=== PATIENT | female | born 1980 | race Caucasian/White ===

== ENCOUNTER 2016-10-25 11:02 | Emergency (ER) ==
[2016-10-25 11:12] VITALS: BP 118/77; TEMP 97.6; BMI 21.3
--- NOTE | 2016-10-25 11:32 | ED.PDOC ---
General ED Provider: Dr. ESTHER DUMONT-ER Chief Complaint: Earache Stated Complaint: Patient complains of bilateral ear pain with an enlarged lymph node on the left neck below the ear Time Seen by Physician: 11:29 Information Source: Patient, Family Exam Limitations: No limitations Primary Care Provider: YOVANI SERNA Nursing and Triage Documentation Reviewed and Agree: Yes Past Medical History - Past Medical History Endocrine: Reports: Hypothyroid Cardiovascular: Reports: None Respiratory: Reports: None Hematological: Reports: None Gastrointestinal: Reports: None Genitourinary: Reports: None Neuro/Psych: Reports: None Musculoskeletal: Reports: None Cancer: Reports: None Last Menstrual Period: 10/09/16 Other Pertinent Past Medical History: otitis media - Surgical History General Surgical History: Reports: None - Social History Smoking Status: Current some day smoker Hx Substance Use: No Alcohol Screening: None - Immunizations Tetanus Shot up to Date: Yes Critical Care Note - Critical Care Note Total Time (mins): 0 Course - Course Vital Signs: Temp Pulse Resp BP Pulse Ox 10/25/16 11:05 97.6 F 67 20 118/77 99 Departure - Departure Time of Disposition: 11:29 Disposition: HOME SELF-CARE Discharge Problem: Otitis media Qualifiers: Otitis media type: other nonsuppurative Laterality: bilateral Chronicity: acute Recurrence: not specified as recurrent Qualifier Code: (H65.193) Other acute nonsuppurative otitis media, bilateral Otitis externa Qualifiers: Otitis externa type: diffuse Laterality: bilateral Chronicity: acute Qualifier Code: (H60.313) Diffuse otitis externa, bilateral Instructions: Otitis Media (ED), Otitis Externa (ED) Pt referred to PMD for follow-up: Yes Additional Instructions: Take Medications as prescribed Follow up with PCP in 3-5 days Allergies/Adverse Reactions: Allergies No Known Allergies Allergy (Unverified 10/25/16 11:08) Home Medications: Ambulatory Orders Levothyroxine Sodium [Synthroid] 75 mcg PO QDAC 10/25/16 Disposition Discussed With: Patient, Family
--- NOTE | 2016-10-25 11:41 | ED.PDOC ---
General ED Provider: Dr. BECKY ALDANA Chief Complaint: Earache Stated Complaint: Patient complains of bilateral ear pain with some drainage and an enlarged lyphm node below the left ear. Time Seen by Physician: 11:39 Information Source: Patient, Family Exam Limitations: No limitations Primary Care Provider: YOVANI SERNA Nursing and Triage Documentation Reviewed and Agree: Yes EENT Complaint Exam - Ear Complaint/Exam Onset/Duration: 3 days Symptoms Are: Still present Timing: Constant Initial Severity: Moderate Current Severity: Moderate Character: Reports: Room spinning Aggravating: Reports: Tugging on ear Alleviating: Reports: None Associated Signs and Symptoms: Reports: Discharge, Pain to external ear, Pain to external face Ear Surgical History: None Vesicles to Tragus: Yes TMJ Tenderness: None Mastoid Tenderness: None Tragal Tenderness: None External Canal: Erythema, Tenderness Material in Canal: Present: Discharge Tympanic Membrane: Erythema, Bulging, Dullness Differential Diagnoses: Otitis Externa, Otitis Media Review of Systems - Review Of Systems Constitutional: Reports: No symptoms Eyes: Reports: No symptoms Ears, Nose, Mouth, Throat: Reports: Ear pain (ear darinage. ) Respiratory: Reports: No symptoms Cardiac: Reports: No symptoms GI: Reports: No symptoms : Reports: No symptoms Musculoskeletal: Reports: No symptoms Skin: Reports: No symptoms Neurological: Reports: No symptoms Endocrine: Reports: No symptoms Hematologic/Lymphatic: Reports: No symptoms All Other Systems: Reviewed and Negative Past Medical History - Past Medical History Endocrine: Reports: Hypothyroid Cardiovascular: Reports: None Respiratory: Reports: None Hematological: Reports: None Gastrointestinal: Reports: None Genitourinary: Reports: None Neuro/Psych: Reports: None Musculoskeletal: Reports: None Cancer: Reports: None Last Menstrual Period: 10/09/16 Other Pertinent Past Medical History: ear infection - Surgical History General Surgical History: Reports: None - Family History Family History: Reports: None - Social History Smoking Status: Current some day smoker Hx Substance Use: No Alcohol Screening: None - Immunizations Tetanus Shot up to Date: Yes Physical Exam - Physical Exam Appearance: Ill-appearing Ill-appearing: Moderate Pain Distress: Moderate Eyes: SANDRA, EOMI, Conjunctiva clear ENT: Exudate Neck: Supple Respiratory: Airway patent, Breath sounds clear, Breath sounds equal, Respirations nonlabored Cardiovascular: RRR, Pulses normal, No rub, No murmur Skin: Warm, Dry Neurological: Alert, Oriented Psychiatric: Anxious Critical Care Note - Critical Care Note Total Time (mins): 0 Course - Course Vital Signs: Temp Pulse Resp BP Pulse Ox 10/25/16 11:05 97.6 F 67 20 118/77 99 Departure - Departure Time of Disposition: 11:39 Disposition: HOME SELF-CARE Discharge Problem: Otitis media Qualifiers: Otitis media type: other nonsuppurative Laterality: bilateral Chronicity: acute Recurrence: not specified as recurrent Qualifier Code: (H65.193) Other acute nonsuppurative otitis media, bilateral Otitis externa Qualifiers: Otitis externa type: diffuse Laterality: bilateral Chronicity: acute Qualifier Code: (H60.313) Diffuse otitis externa, bilateral Instructions: Otitis Externa (ED), Otitis Media (ED) Condition: Good Pt referred to PMD for follow-up: Yes Additional Instructions: Take Medications as prescribed Follow up with PCP in 3-5 days Prescriptions: Amoxicillin [Amoxil] 500 mg PO TID #30 capsule Ibuprofen [Motrin] 600 mg PO Q6H PRN #30 tablet PRN Reason: Analgesia Neomycin/Polymyxin B/Hc Otic [Cortisporin Otic Susp] 2 drop OT QID #10 drops.susp Allergies/Adverse Reactions: Allergies No Known Allergies Allergy (Unverified 10/25/16 11:08) Home Medications: Ambulatory Orders Amoxicillin [Amoxil] 500 mg PO TID #30 capsule 10/25/16 Ibuprofen [Motrin] 600 mg PO Q6H PRN #30 tablet 10/25/16 Levothyroxine Sodium [Synthroid] 75 mcg PO QDAC 10/25/16 Neomycin/Polymyxin B/Hc Otic [Cortisporin Otic Susp] 2 drop OT QID #10 drops.susp 10/25/16 Disposition Discussed With: Patient, Family
== END 2016-10-25 11:45 | disposition home or self-care (01) ==
LOC: ED 11:02
DX: H65.193 Other acute nonsuppurative otitis media, bilateral (principal); H60.313 Diffuse otitis externa, bilateral; F17.210 Nicotine dependence, cigarettes, uncomplicated
CPT/HCPCS: 99282

== ENCOUNTER 2017-02-27 12:14 | Outpatient (CLI) ==
[2017-02-27 12:39] LABS: BASOPHILS # (AUTO) 0.1 K/uL (0-0.2); EOSINOPHILS # (AUTO) 0.2 K/ul (0.0-0.7); EOSINOPHILS % (AUTO) 2.3 % (0.0-7.0); HEMATOCRIT 42.6 % (37.0-47.0); HEMOGLOBIN 14.7 g/dl (12.0-16.0); IMMATURE GRANULOCYTE % (AUTO) 0.2 % (0.0-5.0); LYMPHOCYTES # (AUTO) 1.6 K/uL (0.60-3.4); LYMPHOCYTES % (AUTO) 17.7 (10.0-50.0); MEAN CORPUSCULAR HEMOGLOBIN 31.5 pg (27.0-31.0); MEAN CORPUSCULAR HGB CONC 34.5 (31.8-35.4); MEAN CORPUSCULAR VOLUME 91.2 fl (81.0-99.0); MONOCYTES # (AUTO) 0.6 K/uL (0.4-2.0); MONOCYTES % (AUTO) 6.8 (0-10); NEUTROPHILS # (AUTO) 6.5 K/ul (2.0-6.9); PLATELET COUNT 238 10^3/uL (140-440); RED BLOOD COUNT 4.67 10^6/ul (4.20-5.40); WHITE BLOOD COUNT 8.98 K/ul (4.6-10.2)
--- NOTE | 2017-02-27 12:48 | DI ---
EXAM: Chest two view, frontal and lateral views. HISTORY: Lymphadenopathy. Major depressive disorder. COMPARISON: None available. FINDINGS: The heart size is normal. There is no pulmonary vascular congestion. The lungs are yamileth r. No pleural effusion or pneumothorax is seen. No acute osseous abnormality identified. IMPRESSION: No acute cardiopulmonary process.
[2017-02-27 13:21] LABS: ALBUMIN/GLOBULIN RATIO 1.38; ANION GAP 10.5; BILIRUBIN,TOTAL 0.33 mg/dL (0.00-1.20); BUN/CREATININE RATIO 12.16; CALCIUM 9.2 mg/dL (8.2-10.2); CREATININE 0.74 mg/dL (0.60-1.30); POTASSIUM 3.5 mmol/L (3.5-5.10); TOTAL PROTEIN 6.9 g/dL (6.4-8.2)
[2017-02-28 07:23] LABS: PROLACTIN 6.5 ng/mL (4.8-23.3)
== END 2017-02-27 12:15 | disposition home or self-care (01) ==
LOC: RAD 12:14
PROVIDERS: ATTEND Nurse Practitioner Family
DX: F32.9 Major depressive disorder, single episode, unspecified (principal); R10.84 Generalized abdominal pain; R59.0 Localized enlarged lymph nodes
CPT/HCPCS: 36415; 80053; 80074; 82150; 83690; 84146; 84439; 84443; 85025

== ENCOUNTER 2017-03-02 10:47 | Outpatient (CLI) ==
--- NOTE | 2017-03-02 11:53 | US ---
EXAM: Right breast ultrasound. History: Right clear nipple discharge. Comparison: Bilateral mammogram 03/02/2017 Technique: Multiple sonographic images through the right breast were obtained. Color duplex Doppler was used to interrogate vascular flow. Findings: 0.6 cm right retroareolar cystic lesion or dilated duct. No sonographic abnormalities are seen within the right axilla. Within the subcutaneous soft tissues in the right infraclavicular regio n, there is a fairly well circumscribed 2.8 cm x 1.1 cm x 2.3 cm mixed echogenic mass. No sonographic abnormalities seen within the right axilla. Impression: 1. 0.6 cm indeterminate right retroareolar cystic lesion or dilated duct. This could account for the clear nipple discharge. Surgical consult is recommended. 2. Indeterminate right infraclavicular mass. Surgical consult also recommended. Biopsy may be neede d. BIRADS 0
--- NOTE | 2017-03-02 11:54 | MAMMO ---
EXAM: Bilateral digital diagnostic mammogram History: Right clear nipple discharge. Findings: MLO and CC views of bilateral breasts demonstrate scattered fibroglandular breast parenchy ma. No suspicious microcalcifications. Ill-defined mass-like opacity within the right axillary andres on. Impression: 1. No sonographic abnormalities to account for the right nipple discharge. Recommend further evalua tion with ultrasound. 2. Ill-defined indeterminate mass-like opacity within the right axillary region. Recommend correlat ion with ultrasound. BIRADS 0
== END 2017-03-02 10:48 | disposition home or self-care (01) ==
LOC: RAD 10:47
PROVIDERS: ATTEND Nurse Practitioner Family
DX: N64.52 Nipple discharge (principal); R59.0 Localized enlarged lymph nodes; Z80.3 Family history of malignant neoplasm of breast

== ENCOUNTER 2017-06-26 13:12 | Outpatient (CLI) | END 2017-06-26 13:13 | disposition home or self-care (01) | LOC: LAB 13:12 | PROVIDERS: ATTEND Nurse Practitioner Family | DX: L03.011 Cellulitis of right finger (principal); F32.9 Major depressive disorder, single episode, unspecified; E75.6 Lipid storage disorder, unspecified; E03.9 Hypothyroidism, unspecified | CPT/HCPCS: 36415; 80053; 80061; 84439; 84443; 85025; 87070; 87186 ==

== ENCOUNTER 2017-09-30 16:22 | Outpatient (CLI) | END 2017-09-30 16:23 | disposition home or self-care (01) | LOC: FCC-LAB 16:22 | PROVIDERS: ATTEND Family Medicine | DX: R21 Rash and other nonspecific skin eruption (principal) | CPT/HCPCS: 36415; 80053; 85025; 86038; 86592 ==

== ENCOUNTER 2017-11-18 16:27 | Outpatient (CLI) | END 2017-11-18 16:28 | disposition home or self-care (01) | LOC: LAB 16:27 | PROVIDERS: ATTEND Family Medicine | DX: E06.3 Autoimmune thyroiditis (principal); R29.898 Other symptoms and signs involving the musculoskeletal system; L03.011 Cellulitis of right finger; R21 Rash and other nonspecific skin eruption | CPT/HCPCS: 36415; 80053; 84439; 84443; 84480; 85025 ==

== ENCOUNTER 2017-12-02 14:18 | Outpatient (CLI) ==
--- NOTE | 2017-12-02 15:16 | US ---
EXAM: Thyroid ultrasound History: Hypothyroidism, thyroid nodules. Technique: Multiple sonographic images through the thyroid gland were obtained. Color duplex Dopple r was used to interrogate vascular flow. Findings: The right lobe of the thyroid measures 4.3 cm x 1.3 cm x 1.8 cm demonstrates multiple nodules with th e largest being solid measuring 1.6 cm. The thyroid isthmus measures 0.4 cm in thickness. The left lobe of the thyroid measures 3.1 cm x 1.1 cm x 1.2 cm and demonstrates a 1.2 cm dominant nomi id nodule. The thyroid gland is slightly hypervascular. No extrathyroidal masses are identified. Impression: 1. Dominant solid bilateral thyroid nodules. Correlate with prior studies if available. Otherwise, tissue sampling should be considered. 2. Slightly hypervascular thyroid gland. Correlate for thyroiditis.
== END 2017-12-02 14:19 | disposition home or self-care (01) ==
LOC: RAD 14:18
PROVIDERS: ATTEND Family Medicine
DX: E03.9 Hypothyroidism, unspecified (principal)